=== PATIENT | female | born 1955 | race American Indian/Alaskan Native ===

== ENCOUNTER 2017-03-14 13:22 | Outpatient (CLI) | payer OTHER ==
--- NOTE | 2017-03-14 16:21 | Mammography Report ---
BILATERAL DIGITAL SCREENING MAMMOGRAM WITH CAD: 03/14/17 13:22:00 CLINICAL: Routine screening.Previous benign biopsies. COMPARISON:06/10/09 and, 06/05/08 and 06/18/09 right mammogram. FINDINGS: The breasts are heterogeneously dense, which may obscure small masses. 2 right upper outer biopsy clips in one left upper outer biopsy clip. 2 groups of right calcifications on the CC view require additional imaging. No mass architectural distortion. IMPRESSION: Right calcifications requiring further workup. BI-RADS CATEGORY: 0 -- Additional Imaging Evaluation Required RECOMMENDATION: Recall for right LM and spot magnification CC and LM views. ACR BI-RADS MAMMOGRAPHIC CODES: 0 = Needs additional imaging evaluation; 1 = Negative; 2 = Benign; 3 = Probably benign; 4 = Suspicious; 5 = Malignant; 6 = Known biopsy-proven malignancy COMMENT: 1. Dense breast tissue, i.e., adenosis, fibrocystic changes, etc., may obscure an underlying neoplasm. 2. Approximately 10% of cancers are not detected with mammography. 3. A negative mammography report should not delay biopsy if a clinically suspicious mass is present. COMMENT: Patient follow-up letters are generated via our [employer] application.
== END 2017-03-14 13:23 | disposition home or self-care (01) ==
LOC: SPVWC 13:22
PROVIDERS: ATTEND Student in an Organized Health Care Education/Training Program
DX: Z12.31 Encounter for screening mammogram for malignant neoplasm of breast (principal)
CPT/HCPCS: 77067; G0202

== ENCOUNTER 2017-06-01 09:04 | Outpatient (CLI) | payer OTHER ==
--- NOTE | 2017-06-01 10:01 | Mammography Report ---
RIGHT DIGITAL DIAGNOSTIC MAMMOGRAM : 06/01/17 09:04:00 CLINICAL: Recalled to evaluate calcifications. COMPARISON:03/14/17 screening FINDINGS: Spot magnification ML and CC views were performed. Three groups of calcifications are identified on the ML view. The more anterior and superior group is suspicious with pleomorphic forms. A posterior group of calcifications are amorphous and less suspicious. 2 groups of calcifications in the inner breast on the CC mag view correlate with these 2 groups identified on the ML view. A third group of calcifications on the ML view has benign morphology with layering and I don't find a correlate for these on the lateral view. IMPRESSION: Suspicious calcifications which warrant a stereotactic biopsy. Recommend stereotactic biopsy of the more suspicious anterior group in the upper inner breast. The patient was told of my recommendation for stereotactic biopsy at the time of the exam. BI-RADS CATEGORY: 4--Suspicious RECOMMENDATION: Stereotactic biopsy of the right breast. ACR BI-RADS MAMMOGRAPHIC CODES: 0 = Needs additional imaging evaluation; 1 = Negative; 2 = Benign; 3 = Probably benign; 4 = Suspicious; 5 = Malignant; 6 = Known biopsy-proven malignancy COMMENT: 1. Dense breast tissue, i.e., adenosis, fibrocystic changes, etc., may obscure an underlying neoplasm. 2. Approximately 10% of cancers are not detected with mammography. 3. A negative mammography report should not delay biopsy if a clinically suspicious mass is present. COMMENT: Patient follow-up letters are generated via our [employer] application.
== END 2017-06-01 09:05 | disposition home or self-care (01) ==
LOC: MAMMO 09:04
PROVIDERS: ATTEND Student in an Organized Health Care Education/Training Program
DX: R92.1 Mammographic calcification found on diagnostic imaging of breast (principal)